=== PATIENT | male | born 1985 | race Caucasian/White ===

== ENCOUNTER → 2017-05-22 | Outpatient (REF) | payer OTHER, SELFPAY ==
[2017-05-22 11:33] LABS: #IMMOTILE SPERM COUNTED 1; #MOTILE SPERM COUNTED 0; % MOTILITY 0 (> 40%); SPERM ABNORMAL FORMS WBC'S NOTED; TOTAL # SPERM COUNTED 1 M/ml
== END ==
LOC: M LAB REF 10:40
PROVIDERS: ATTEND Physician Assistant
DX: Z31.41 Encounter for fertility testing (principal)

== ENCOUNTER → 2017-07-10 | Outpatient (REF) | payer OTHER | LOC: M SMT 13:02 | PROVIDERS: ATTEND Nurse Practitioner Family | DX: N46.023 Azoospermia due to obstruction of efferent ducts (principal) | CPT/HCPCS: 81001; 87086; G0463 ==

== ENCOUNTER → 2017-07-18 | Outpatient (REF) | payer OTHER ==
[2017-07-18 13:20] LABS: #IMMOTILE SPERM COUNTED 2; #MOTILE SPERM COUNTED 1; % MOTILITY 33 (> 40%); TOTAL # SPERM COUNTED 3 M/ml
== END ==
LOC: M SMT 13:17
PROVIDERS: ATTEND Nurse Practitioner Family
DX: N46.023 Azoospermia due to obstruction of efferent ducts (principal)

== ENCOUNTER → 2017-07-24 | Outpatient (REF) | payer OTHER | LOC: M SMT 14:52 | PROVIDERS: ATTEND Nurse Practitioner Family | DX: N46.023 Azoospermia due to obstruction of efferent ducts (principal) ==

== ENCOUNTER → 2017-08-07 | Outpatient (REF) | payer OTHER ==
[2017-08-07 11:58] LABS: FOLLICLE STIMULATING HORMONE 11.4 mIU/mL (1.4-18.1); LUTEINIZING HORMONE 9.4 mIU/mL (1.5-9.3)
[2017-08-09 08:06] LABS: ESTRIOL SERUM <0.1 ng/mL (Not Estab.)
== END ==
LOC: M LABSMT 09:17
PROVIDERS: ATTEND Nurse Practitioner Family
DX: N46.023 Azoospermia due to obstruction of efferent ducts (principal)